=== PATIENT | female | born 1995 | race Caucasian/White ===

== ENCOUNTER 2017-11-02 06:11 | Day surgery (SDC) | payer BC ==
[2017-11-01 11:06] VITALS: BMI 19.3
[2017-11-02] MEDS ORDERED: MIDAZOLAM HCL 2 MG/2 ML SINGLE DOSE VIAL ONE ×2 (07:37)
[2017-11-02] MEDS ORDERED: ROCURONIUM BROMIDE 50 MG/5 ML VIAL ONE (07:41)
[2017-11-02] MEDS ORDERED: PROPOFOL 20 ML ONE (07:41)
[2017-11-02] MEDS ORDERED: NEOSTIGMINE METHYLSULFATE 0.5 MG/ML - 10 ML MDV ONE (08:44)
--- NOTE | 2017-11-02 08:50 | OP ---
Operative Note - Note: Operative Date: 11/02/17 Pre-Operative Diagnosis: Chronic tonsillitis Operation: Tonsillectomy Findings: infected tonsils Post-Operative Diagnosis: Same as Pre-op Surgeon: Manish Plata Anesthesiologist/SMELTER OPERATOR: Isabel Fan MD Anesthesia: General Specimens Removed: tonsils
[2017-11-02] MEDS ORDERED: oxyCODONE HCL 5 MG TABLET PO PRN (09:04)
[2017-11-02] MEDS ORDERED: ONDANSETRON 4 MG/2 ML VIAL IVPUSH PRN (09:04)
[2017-11-02] MEDS ORDERED: PROMETHAZINE HCL 25 MG/1 ML VIAL IVPUSH PRN (09:04)
[2017-11-02] MEDS ORDERED: ACETAMINOPHEN 1000 MG/100 ML VIAL (NON FORMULARY) IVPB ONE (09:05)
[2017-11-02] MEDS ORDERED: LACTATED RINGERS SOLUTION 1,000 ML IV SCH (09:15)
--- NOTE | 2017-11-02 10:13 | OP ---
DATE OF OPERATION: 11/02/2017 PREOPERATIVE DIAGNOSIS: Chronic tonsillitis. POSTOPERATIVE DIAGNOSIS: Chronic tonsillitis. PROCEDURE: Tonsillectomy. SURGEON: Manish Clark MD ANESTHESIA: General endotracheal by Isabel Fan MD. INDICATIONS: The patient is a 22-year-old woman with frequently recurrent tonsillitis for the last 2 years, who requests tonsillectomy. The nature and purpose of the proposed procedure as well as the risks, benefits, alternatives, and possible complications were discussed in detail with the patient who appears to understand and wishes to proceed with surgery. All questions were answered, and informed consent was given by the patient. PROCEDURE DESCRIPTION: With the patient under general endotracheal anesthesia in the supine position, she was prepped and draped in the usual sterile fashion. The mouth was opened with a mouth gag, keeping the tongue and endotracheal tube in the midline position, and the mouth gag was suspended on the Perez stand. The tonsils were dissected from their underlying fossae with a Coblation EVAC 70 wand. This was also used for cautery. After removal, the specimens were sent for pathologic evaluation, and once the mouth gag was taken off of suspension and removed, when the patient wakened, she was discharged to the recovery room in satisfactory condition. There were no complications. ESTIMATED BLOOD LOSS: 20 mL MANISH CLARK M.D. /[id number]
[2017-11-02 10:48] VITALS: TEMP 97.5
[2017-11-02 12:57] VITALS: BP 119/72; PULSE 80
--- NOTE | 2017-11-03 18:21 | PATH ---
Surgical Pathology Report Patient Name: ADELITA GOODRICH [facility]. Rec. #: [id number] /Age/Gender: 1995 (Age: 22) / F Account: [id number] Location: [facility] SURGICAL Taken: 11/02/2017 Received: 11/02/2017 Reported: 11/03/2017 Physicians: Manish Plata Specimen(s) Received TONSILS Clinical History Chronic tonsillitis Final Diagnosis TONSILS, EXCISION: TONSILS WITH LYMPHOID FOLLICLE HYPERPLASIA. Electronically Signed Abiel Soto M.D. Gross Description Received in formalin labeled "tonsils," are 2 undesignated, ovoid portions of soft tissue, consistent with tonsils. The specimens measure 2.6 x 2.0 x 1.8 cm and 3.2 x 2.2 x 1.8 cm. The outer surfaces are saldaña-pink, convoluted and vary from smooth to cauterized. Sectioning reveals saldaña-pink parenchyma with cryptic architecture. No discrete lesions are identified. Licensed Practical Nurse sections are submitted in 2 cassettes as follows: 1-smaller tonsil; 2-larger tonsil. /11/02/2017 saudi11/02/2017
== END 2017-11-02 12:10 | disposition home or self-care (01) ==
LOC: JASU-SURG 06:11
PROVIDERS: ATTEND Otolaryngology
PROC: 0C5PXZZ Destruction of Tonsils, External Approach (ICD-10-PCS; principal; 2017-11-02 07:30)
DX: J35.01 Chronic tonsillitis (principal)
CPT/HCPCS: 84703; 88304-TC; 94760; J0131